=== PATIENT | female | born 1990 | race Caucasian/White ===

== ENCOUNTER → 2017-07-05 16:43 | Outpatient (CLI) | payer OTHER, SELFPAY ==
[2017-07-05 19:33] LABS: Chlamydia Trachomatis by PCR Negative (Negative); Neisserai gonorrhoeae by PCR Negative (Negative); Probe Check PASS; Sample Adequacy Control PASS; Specimen Processing Control PASS
== END ==
PROVIDERS: Visit Provider Obstetrics & Gynecology
DX: Z34.81 Encounter for supervision of other normal pregnancy, first trimester (principal)
CPT/HCPCS: 87491; 87591

== ENCOUNTER → 2017-08-09 16:08 | Outpatient (CLI) | payer OTHER, SELFPAY ==
[2017-08-09 17:44] LABS: Absolute Lymphocyte Count 2.09 X10^3/ul (0.83-4.51); Absolute Neutrophil Count 8.4 X10^3/uL (2.0-7.7); Basophil# 0.02 X10^3/uL; Basophil% 0.2 % (0-1); Eosinophil# 0.09 X10^3/uL; Eosinophils% 0.8 % (0-5); Hematocrit 38.4 % (37-47); Hemoglobin 13.1 g/dl (12.0-15.0); Lymphocyte # 2.09 X10^3/ul (4.0); Lymphocyte % 18.2 % (19-41); Mean Corp Hgb Conc 34.1 g/gl (32-36); Mean Corpuscular Hgb 30.8 pg (27.0-32.0); Mean Corpuscular Volume 90.1 fL (81-99); Mean Platelet Vol. 11.3 fl (6.2-12.0); Monocyte# 0.86 X10^3/uL; Monocyte% 7.5 % (0-10); Neutrophil # 8.42 X10^3/uL (2.7-7.7); Platelet Count 273 K/mm3 (150-450); RBC Distribution Width CV 12.7 % (11.6-14.6); RBC Distribution Width SD 41.6 fl (35.1-43.9); Red Blood Count 4.26 M/mm3 (4.2-5.4); White Blood Count 11.5 K/mm3 (4.4-11.0)
[2017-08-09 17:45] LABS: POSITIVE COUNT NO; POSITIVE DIFFERENTIAL NO; POSITIVE MORPHOLOGY NO
[2017-08-09 17:48] LABS: Color, Urine Yellow (Yellow); Glucose, Dipstick Normal (Normal); Ketone-Dipstick Negative (Negative); Leukocyte Esterase-Dipstick 25 /ul (Negative); Nitrite-Dipstick Negative (Negative); Occult Blood-Urine 10 /ul (Negative); Protein-Dipstick Negative (Negative); Specific Gravity, Urine 1.025 (1.002-1.030); Urine Bilirubin Dipstick Negative (Negative); Urine Clarity Clear (Clear); Urine Urobilinogen Normal (Normal)
[2017-08-09 18:02] LABS: COTININE Drug Screen Negative (<200 ng/mL)
[2017-08-09 18:12] LABS: Thyroid Stim Hormone (TSH) 1.78 uIU/mL (0.358-3.74)
[2017-08-09 18:17] LABS: Amphetamine Urine VISTA NEGATIVE (<1000 ng/mL); Barbiturate Urine VISTA NEGATIVE (< 200 ng/mL); Benzodiazepine Urine VISTA NEGATIVE (< 200 ng/mL); Cocaine Urine VISTA NEGATIVE (< 300 ng/mL); Ecstacy Urine VISTA NEGATIVE (< 500 ng/mL); Methadone Urine VISTA NEGATIVE (< 300 ng/mL); PCP Urine VISTA NEGATIVE (< 25 ng/mL); THC Urine VISTA NEGATIVE (< 50 ng/mL); Vista UDS pH Range 7
[2017-08-10 09:36] LABS: HIV - WCH Non-Reactive (Nonreactive); Rubella IgG 21.3 IU/mL
[2017-08-11 12:55] LABS: HEPATITIS B SURFACE AG Negative (Negative); Hep C Antibodies <0.1 s/co ratio (0.0-0.9)
[2017-08-12 01:09] LABS: Prenatal RPR NONREACTIVE (NONREACTIVE)
== END ==
PROVIDERS: Visit Provider Obstetrics & Gynecology
DX: Z34.81 Encounter for supervision of other normal pregnancy, first trimester (principal)
CPT/HCPCS: 36415; 80307; 81002; 84443; 85025; 86703; 86762; 86803; 87340

== ENCOUNTER → 2017-10-13 11:53 | Outpatient (CLI) | payer OTHER, SELFPAY | PROVIDERS: Visit Provider Obstetrics & Gynecology | DX: R30.0 Dysuria (principal); R31.9 Hematuria, unspecified; R39.15 Urgency of urination | CPT/HCPCS: 87086; 87088 ==

== ENCOUNTER → 2017-11-29 13:54 | Outpatient (CLI) | payer OTHER, SELFPAY ==
[2017-11-29 15:52] LABS: Hematocrit 34.7 % (37-47); Hemoglobin 11.6 g/dl (12.0-15.0); Mean Corp Hgb Conc 33.4 g/gl (32-36); Mean Corpuscular Hgb 31.4 pg (27.0-32.0); Mean Corpuscular Volume 93.8 fL (81-99); Mean Platelet Vol. 12.1 fl (6.2-12.0); Platelet Count 208 K/mm3 (150-450); RBC Distribution Width CV 12.9 % (11.6-14.6); RBC Distribution Width SD 43.3 fl (35.1-43.9); Scan Indicated on CBC? Y/N NO; White Blood Count 13.5 K/mm3 (4.4-11.0)
[2017-11-29 15:57] LABS: Glucose Challenge Gest 1H 50g 114 mg/dL (70-140)
== END ==
PROVIDERS: Visit Provider Obstetrics & Gynecology
DX: Z34.83 Encounter for supervision of other normal pregnancy, third trimester (principal)
CPT/HCPCS: 36415; 82950; 85027

== ENCOUNTER → 2018-01-24 13:16 | Outpatient (CLI) | payer OTHER, SELFPAY ==
[2018-01-24 16:11] LABS: Group B Strep DNA By PCR POSITIVE (Negative); Probe Check PASS
== END ==
PROVIDERS: Visit Provider Obstetrics & Gynecology
DX: Z36.85 Encounter for antenatal screening for Streptococcus B (principal)
CPT/HCPCS: 87653

== ENCOUNTER 2018-01-26 23:15 | Outpatient (CLI) | payer OTHER, SELFPAY ==
[2018-01-26 23:57] VITALS: BMI 26.0
[2018-01-27 01:00] VITALS: RESP 18
--- NOTE | 2018-01-27 01:42 | OB.TRI.NOTE ---
- Problem List (1) 36 weeks gestation of Status: Acute (2) False labor at or after 37 completed weeks of gestation Status: Acute History of Present Illness Was patient seen by the physician?: No Reason For Visit: R/O LABOR Date of Service: 01/27/18 Final ROSEMARIE: 02/18/18 Final ROSEMARIE Source: US <20 weeks Gestational age: 36 Weeks and 6 Days History of Present Illness: 27yo G1 @ 36 6/7wga with c/o contractions Allergies gluten Adverse Reaction (Verified 01/26/18 23:57) Vomiting Physical Exam Vitals: Vital Signs Resp 18 01/27/18 01:00 NST - FHR Rate Baby A Baseline: 120 Variability:: Moderate Accelerations:: 15 x 15 Decelerations:: None NST Reactive:: Yes FHR Category:: Category I Uterine Activity:: 4/10 min Impression/Plan 27yo G1 @ 36 6/7wga with false labor, Cat I FHR -SVE 1-2/75/-2 per ANA Urrutia unchanged from recent office exam -d/c home
== END 2018-01-27 01:00 | disposition home or self-care (01) ==
LOC: WPOUT 23:34 → WP 23:35
PROVIDERS: Family Provider Obstetrics & Gynecology; PCP Obstetrics & Gynecology; Visit Provider Obstetrics & Gynecology
DX: O47.03 False labor before 37 completed weeks of gestation, third trimester (principal); Z3A.36 36 weeks gestation of pregnancy
CPT/HCPCS: 59025; 59050; 99218; G0378

== ENCOUNTER 2018-01-31 01:35 | Inpatient (IN) | payer OTHER, SELFPAY ==
[2018-01-31] MEDS: Lactated Ringers 1,000 ML 50 ML IV (01:45)
[2018-01-31 01:54] VITALS: BMI 26.7
[2018-01-31 02:09] LABS: Hematocrit 34.8 % (37-47); Hemoglobin 11.5 g/dl (12.0-15.0); Mean Corpuscular Hgb 30.3 pg (27.0-32.0); Mean Corpuscular Volume 91.6 fL (81-99); Mean Platelet Vol. 13.6 fl (6.2-12.0); Platelet Count 163 K/mm3 (150-450); RBC Distribution Width SD 43.5 fl (35.1-43.9); White Blood Count 14.3 K/mm3 (4.4-11.0)
[2018-01-31 02:12] LABS: Scan Indicated on CBC? Y/N NO
[2018-01-31] MEDS: Oxytocin 30 units/NS 500 ml 30 UNITS/500 ML IV.SOLN 334 UNITS IV (05:29)
--- NOTE | 2018-01-31 05:40 | PCM.OB.VAG ---
Vaginal Delivery Maternal Presentation: Active Labor Amniotic Membrane Rupture Type: Spontaneous Amniotic Fluid Description: Clear Final ROSEMARIE: 02/18/18 Final ROSEMARIE Source: US <20 weeks Gestational age: 37 Weeks and 3 Days Date of Procedure: 01/31/18 Pre-Operative Diagnosis: IUP Post-Operative Diagnosis: IUP Surgery/ Procedure Performed: Spontaneous Vaginal Delivery Type of Anesthesia: None Description of Procedure: Spontaneous vaginal delivery of a viable male with Apgars of 8/9 from an occiput anterior presentation with clear amniotic fluid and normal three-vessel placenta. No episiotomy or laceration. Sponge counts okay. Delivery physician: Ashwin Ramos MD. Presentation: Vertex Placental Delivery Description: Spontaneous Placenta Disposition: [facility] Cord Vessel Description: 3 Vessels Cord Gases drawn per routine: ABG Cord Entanglement: Around neck x 2, loose Estimated Blood Loss: 250 cc Infant A gender: Male (1 minute): 8 (5 minute): 9 Episiotomy Description: None Laceration: None Medications given after delivery: IV Pitocin Complications: None
--- NOTE | 2018-01-31 05:43 | PCM.DCVAG ---
Discharge Diet: No Restrictions Discharge Activity: May Shower, May Take a Tub Bath May resume sexual activity in: 4-6 weeks Additional Activity Instructions:: Nothing in the vagina for 4-6 weeks. You may return to work/school in 6 weeks. Call your doctor if you observe: Fever of 101 or Higher, Inability to urinate, Inability to have a bowel movement, Using more than one pad per hour Additional Instructions: If you experience any of the following, contact your healthcare provider. Bleeding that soaks a pad every hour for 2 hours Unrelieved incision or abdominal pain Swelling, redness, discharge or bleeding from your incision or episiotomy site Your incision begins to separate Problems urinating (including inability to urinate or burning while urinating). Visual changes Severe headache Flu-like symptoms Pain or redness in one of both of your breasts Pain, warmth, tenderness or swelling in your legs, especially the calf area Frequent nausea and vomiting Symptoms of depression or anxiety If you experience any of the following, call 911 or go to the nearest Emergency Room. Chest pain Problems breathing Seizure activity Partial or complete paralysis of a body part, slurred speech, weakness or drooping of the face, or a sudden inability to walk or hold your balance Allergies/Adverse Reactions: Allergies gluten Adverse Reaction (Verified 01/31/18 01:57) Vomiting Medications to take at Discharge Ferrous Sulfate [Iron] 325 mg PO DAILY 01/26/18 Vits [Prenatabs FA] 1 tablet PO DAILY 01/26/18 Please Follow Up With: Michelle Alva MD - [phone] When: Call to make an appointment with your doctor in 6 weeks. Primary Care Physician: Care Physician,No Primary [Primary Care Provider] - Test Results: Test results from this visit will be discussed in further detail at your follow-up appointment, if applicable.
[2018-01-31] MEDS: Oxytocin 30 units/NS 500 ml 30 UNITS/500 ML IV.SOLN 167 UNITS IV (06:00)
[2018-01-31 12:00] VITALS: BP 123/66; PULSE 72; RESP 16; TEMP 36.2
[2018-01-31 15:57] VITALS: BP 118/65; PULSE 73; RESP 16; TEMP 36.6
[2018-01-31 20:15] VITALS: BP 123/64; PULSE 68; RESP 16; TEMP 36.7; O2SAT 98
[2018-02-01 00:11] VITALS: BP 120/66; PULSE 66; RESP 16; TEMP 36.7; O2SAT 97
[2018-02-01] MEDS: Acetaminophen 500 MG Tablet 1000 MG PO ×2 (04:11→18:36)
[2018-02-01 04:15] VITALS: BP 129/72; PULSE 61; RESP 16; TEMP 36.6; O2SAT 94
--- NOTE | 2018-02-01 07:44 | PCM.PN.OB ---
Subjective: No issues overnight. Lochia is lightening. Denies pain. Has mild cramping with nursing. is spoon feeding prior to feeds. Bryan has no complaints. Objective: AVSS - Physical Exam General: Alert, Oriented x3, Cooperative, No apparent distress HEENT: Atraumatic, Normocephalic Lungs: Normal air movement Cardiovascular: Regular rate, Regular Rhythm Abdomen: Soft, Non Tender, Non-Distended, - - Fundus firm and nontender, lochia moderate Extremities: No edema, No Calf Tenderness Neurological: Neuro grossly intact Psych/Mental Status: Normal Affect, Appropriate, Alert and oriented to time, place, person, mood and affect Vital Signs Temp Pulse Resp BP Pulse Ox 97.9 F 61 16 129/72 H 94 02/01/18 04:15 02/01/18 04:15 02/01/18 04:15 02/01/18 04:15 02/01/18 04:15 Oxygen Delivery Method Room Air Weight: 68.5 kg Body Mass Index (BMI) 26.7 Intake and Output for Last 24 Hours 01/30/18 01/31/18 02/01/18 23:59 23:59 23:59 Intake Total 1545 / 1545 Output Total 700 / 700 Balance 845 / 845 Medical Necessity - Tobacco Use Smoking Status: Never smoker Assessment/Plan All Active Problems 36 weeks gestation of (Acute) False labor at or after 37 completed weeks of gestation (Acute) 27yo PPD#1 s/p doing well. - -RPR nr, Hep C Ab neg, HBsAg neg, HIV neg, Rubella immune, O positive -Routine care
[2018-02-01 08:00] VITALS: BP 120/76; PULSE 64; RESP 18; TEMP 36.7
[2018-02-01 13:57] VITALS: BP 136/80; PULSE 58; RESP 14; TEMP 36.4
[2018-02-01] MEDS: Ondansetron ODT 4 MG Tablet PO (17:40)
[2018-02-01 20:30] VITALS: BP 124/66; PULSE 68; RESP 18; TEMP 36.6; O2SAT 97
[2018-02-02 02:45] VITALS: BP 126/58; PULSE 88; RESP 18; TEMP 36.6
[2018-02-02] MEDS: Ibuprofen 600 MG Tablet PO (02:59)
--- NOTE | 2018-02-02 08:40 | PCM.PN.OB ---
Subjective: Reports nausea with vomiting yesterday afternoon now resolved however noted right upper abdominal and right back pain since then. She previously pulled out a rib related to sports injury in the past and this resembles that. Sickness set in about 1-2 hours after eating lunch yesterday. No nausea today, denies fever, chills, headache, vision changes, other abdominal pain, shortness of breath. She otherwise feels well. Objective: AVSS - Physical Exam General: Alert, Oriented x3, Cooperative, No apparent distress HEENT: Atraumatic, Normocephalic Lungs: Clear to auscultation, Normal air movement Cardiovascular: Regular rate, Regular Rhythm, Normal S1, Normal S2 Abdomen: Soft, Non Tender, Non-Distended, No Hepato-splenomegaly, - - No CVA tenderness, no rib or costochondral tenderness Extremities: No edema, No Calf Tenderness Neurological: Deep Tendon Reflexes 2+/4 and Symmetrical, Neuro grossly intact Psych/Mental Status: Normal Affect, Appropriate, Alert and oriented to time, place, person, mood and affect Vital Signs Temp Pulse Resp BP Pulse Ox 97.8 F 88 18 126/58 H 97 02/02/18 02:45 02/02/18 02:45 02/02/18 02:45 02/02/18 02:45 02/01/18 20:30 Oxygen Delivery Method Room Air Weight: 68.5 kg Body Mass Index (BMI) 26.7 Intake and Output for Last 24 Hours 01/31/18 02/01/18 02/02/18 23:59 23:59 23:59 Intake Total 1545 / 1545 Output Total 700 / 700 Balance 845 / 845 Medical Necessity - Tobacco Use Smoking Status: Never smoker Assessment/Plan All Active Problems 36 weeks gestation of (Acute) False labor at or after 37 completed weeks of gestation (Acute) 27yo PPD#2 s/p doing well. - -RPR nr, Hep C Ab neg, HBsAg neg, HIV neg, Rubella immune, O positive -Routine care -Likely recurrence of prior ribcage injury from wretching, pt to continue monitoring -dc home
[2018-02-02 09:45] VITALS: BP 109/68; PULSE 67; RESP 16; TEMP 36.6; O2SAT 98
== END 2018-02-02 12:05 | disposition home or self-care (01) | DRG 774 ==
PROVIDERS: Admitting Provider Obstetrics & Gynecology; Visit Provider Obstetrics & Gynecology
DX: O69.81X0 Labor and delivery complicated by cord around neck, without compression, not applicable or unspecified (principal); O90.89 Other complications of the puerperium, not elsewhere classified; Z3A.37 37 weeks gestation of pregnancy; Z37.0 Single live birth; M54.9 Dorsalgia, unspecified; R10.11 Right upper quadrant pain
CPT/HCPCS: 59050; 85027; 86850; 86900; 99218; J7120; G0378

== ENCOUNTER 2018-02-07 09:10 | Outpatient (CLI) | payer OTHER, SELFPAY | END 2018-02-07 10:10 | disposition home or self-care (01) | LOC: WPOUT 09:14 → WP 09:15 | PROVIDERS: Visit Provider Obstetrics & Gynecology | DX: Z39.1 Encounter for care and examination of lactating mother (principal) | CPT/HCPCS: 96152 ==

== ENCOUNTER → 2019-04-26 14:11 | Outpatient (CLI) | payer OTHER, SELFPAY ==
[2019-04-26 13:49] VITALS: BMI 23.3
[2019-04-26 15:08] LABS: Absolute Lymphocyte Count 2.41 X10^3/uL (0.83-4.51); Absolute Neutrophil Count 7.4 X10^3/uL (2.0-7.7); Basophil# 0.04 X10^3/uL; Basophil% 0.4 % (0-1); Eosinophil# 0.07 X10^3/uL; Eosinophils% 0.6 % (0-5); Hematocrit 41.8 % (37-47); Hemoglobin 13.5 g/dL (12.0-15.0); Lymphocyte # 2.41 X10^3/ul (4.0); Lymphocyte % 21.8 % (19-41); Mean Corp Hgb Conc 32.3 g/dL (32-36); Mean Corpuscular Hgb 29.8 pg (27.0-32.0); Mean Corpuscular Volume 92.3 fL (81-99); Mean Platelet Vol. 11.3 fl (6.2-12.0); NRBC Flagged by Analyzer 0 % (0-5); Neutrophil % 66.9 % (47-70); Platelet Count 236 K/mm3 (150-450); RBC Distribution Width CV 12.6 % (11.6-14.6); RBC Distribution Width SD 42.6 fl (35.1-43.9); Red Blood Count 4.53 M/mm3 (4.2-5.4); White Blood Count 11.1 K/mm3 (4.4-11.0)
[2019-04-26 15:31] LABS: T4 Free Direct 0.89 ng/dL (0.76-1.46)
== END ==
PROVIDERS: Family Provider Family Medicine; PCP Family Medicine; Referring Provider Obstetrics & Gynecology; Visit Provider Obstetrics & Gynecology
DX: N92.1 Excessive and frequent menstruation with irregular cycle (principal); Z97.5 Presence of (intrauterine) contraceptive device
CPT/HCPCS: 36415; 84439; 84443; 85025

== ENCOUNTER → 2019-04-27 14:05 | Outpatient (CLI) | payer OTHER, SELFPAY ==
[2019-04-26 13:49] VITALS: BMI 23.3
--- NOTE | 2019-04-27 14:07 | US_ITS ---
STUDY: ULTRASOUND OF THE FEMALE PELVIS - COMPLETE REASON FOR EXAM: Female, 28 years old. IUD placement. Heavy bleeding. LMP: April 21, 2019. TECHNIQUE: Transabdominal and Transvaginal TECHNICAL QUALITY: Adequate. COMPARISON: Pelvic ultrasound, May 31, 2017. FINDINGS: The uterus is anteverted and is in a midline position. The uterus measures 8.0 x 3.9 x 2.9 cm. The endometrium measures 1.7 mm in thickness, and is hyperechoic. There is no demonstrated endometrial mass. There is no demonstrated myometrial mass. There is an IUD within the cervical canal. Cervix is otherwise unremarkable. The right ovary is visualized. The right ovary measures 1.8 x 2.4 x 1.4 cm. Multiple follicles in the right ovary. There is 1.3 x 1.3 x 0.6 cm dominant follicle. There is no visualized right adnexal mass or complex lesion. There is normal arterial and normal venous vascularity. The left ovary is visualized. The left ovary measures 2.2 x 1.5 x 1.2 cm. There are multiple follicles within the left ovary. There is a 1.2 x 1.3 x 1.0 cm dominant follicle. There is no visualized left adnexal mass or complex lesion. There is normal arterial and normal venous vascularity. There is no fluid in the cul-de-sac. The pre void volume of the bladder was 920 ml. Polycystic ovary disease: No. US/Transvaginal Non- IMPRESSION: 1. IUD in the cervical canal. 2. Normal bilateral ovaries. Electronically Signed: Aj Paz DO at 22:49 EST Tel [phone], Service support ,
--- NOTE | 2019-04-27 14:07 | US_ITS ---
STUDY: ULTRASOUND OF THE FEMALE PELVIS - COMPLETE REASON FOR EXAM: Female, 28 years old. IUD placement. Heavy bleeding. LMP: April 21, 2019. TECHNIQUE: Transabdominal and Transvaginal TECHNICAL QUALITY: Adequate. COMPARISON: Pelvic ultrasound, May 31, 2017. FINDINGS: The uterus is anteverted and is in a midline position. The uterus measures 8.0 x 3.9 x 2.9 cm. The endometrium measures 1.7 mm in thickness, and is hyperechoic. There is no demonstrated endometrial mass. There is no demonstrated myometrial mass. There is an IUD within the cervical canal. Cervix is otherwise unremarkable. The right ovary is visualized. The right ovary measures 1.8 x 2.4 x 1.4 cm. Multiple follicles in the right ovary. There is 1.3 x 1.3 x 0.6 cm dominant follicle. There is no visualized right adnexal mass or complex lesion. There is normal arterial and normal venous vascularity. The left ovary is visualized. The left ovary measures 2.2 x 1.5 x 1.2 cm. There are multiple follicles within the left ovary. There is a 1.2 x 1.3 x 1.0 cm dominant follicle. There is no visualized left adnexal mass or complex lesion. There is normal arterial and normal venous vascularity. There is no fluid in the cul-de-sac. The pre void volume of the bladder was 920 ml. Polycystic ovary disease: No. US/Pelvic (Non ) IMPRESSION: 1. IUD in the cervical canal. 2. Normal bilateral ovaries. Electronically Signed: Aj Paz DO at 22:49 EST Tel [phone], Service support ,
== END ==
PROVIDERS: Family Provider Family Medicine; PCP Family Medicine; Referring Provider Obstetrics & Gynecology; Visit Provider Obstetrics & Gynecology
DX: N92.1 Excessive and frequent menstruation with irregular cycle (principal); Z97.5 Presence of (intrauterine) contraceptive device
CPT/HCPCS: 76830; 76856

== ENCOUNTER 2019-08-07 07:23 | Day surgery (SDC) | payer OTHER, SELFPAY ==
[2019-07-03 13:06] VITALS: BMI 23.9
[2019-07-31 13:39] VITALS: BMI 23.9
--- NOTE | 2019-08-04 03:52 | HP.PCM_ITS ---
- Problem List (1) Abnormal uterine bleeding Status: Acute Comment: persistent bleeding despite changing hormones, nl US, recommend d and c hysteroscopy to evaluate lining History and Physical Date of Admission: 08/07/19 Intake Vital Signs 07/31/19 Height 5 ft 4 in 07/31/19 Weight: 137 lb 07/31/19 BMI 23.5 07/31/19 BP 94/72 Intake Visit Reasons: pre op Chief Complaint: pre op D&C Chief Accountant Required: No Is patient in pain?: No Allergies gluten Adverse Reaction (Verified 07/31/19 13:38) Vomiting Medications sertraline 100 mg tablet 100 mg PO DAILY 06/01/18 [History Confirmed 07/31/19] norethindrone 1 mg-ethinyl estradiol 20 mcg (24)-iron 75 mg (4) tablet 1 tab PO QDAY #28 tab 04/26/19 [Rx Confirmed 07/31/19] metoprolol succinate 25 mg tablet,extended release 24 hr 12.5 mg PO DAILY 07/03/19 [History Confirmed 07/31/19] Is last menstrual period known: No Post menopausal: No Patient : No : [facility] Medical History Anxiety (Acute) Kidney stones (Acute) Social History (Updated 07/31/19 @ 13:[address] Amairani Deutsch MD) adopted: No household members: family housing: house number of children: 1 current occupational status: employed current occupation: Self employed pets and animals: Yes history of recent travel: No Smoking Status: Never smoker second hand exposure: No alcohol intake: current alcohol intake frequency: holidays/special occasions only substance use type: does not use diet: gluten free what type of physical activity do you participate in: other details: Crossfit seatbelt use: always do you feel safe at home: Yes additional social history: [place] MARQUEZ pre op : Details: BETTE LUIS is a 29 year old who presents for AUB planning a d and c hyysteroscopy. Female Reproductive History Questions: Metorrhagia: Yes, Sexually active: Yes Pregancy History 1 Elective abortions Hx Para 1 Spontaneous abortions Hx # Term Pregnancies 1 Ectopic pregnancies Hx # Pregnancies Multiple births # of living children 1 Past Pregnancies Del. Date Name GA/Weeks Outcome Route Bth Weight Gen Labor Lgth Anesthesia Del Locatn Provider FOB 01/31/18 Pelon 37 live - full term 5lbs 12oz Male 9 hours other [facility] Dr. Rachel Martell Delivery Date: 01/31/18 On 03/20/18 @ 10:56 Lulu Sánchez None ROS Const Constitutional: Denies fatigue, fever(s), headache(s), increased appetite, poor appetite, weight gain or weight loss ENT ENT: Denies dry mouth Cardio Card: Denies chest pain Resp Resp: Denies cough or dyspnea GI GI: Reports as per HPI; denies abdominal pain, constipation, nausea or vomiting : Reports as per HPI; denies difficulty urinating, painful urination, blood in urine, nipple discharge, pelvic pain, urinary frequency, urinary incontinence, urinary hesitancy, urinary urgency, vaginal discharge, vaginal dryness, vaginal odor, vaginal itching or other Skin Skin/Breast: Denies nipple discharge Exam Const General: cooperative, healthy appearing, comfortable, no acute distress, well developed Nutritional Appearance: average body habitus Orientation: alert [facility] Head: normal to inspection, normocephalic Ears: hearing grossly normal bilaterally, external ears normal Nose: external nose normal, nares normal Face and sinus: normal facial exam Neck Neck: normal visual inspection, no lymphadenopathy, trachea midline Thyroid: thyroid normal Resp Effort & Inspection: normal respiratory effort GI Inspection: normal to inspection, non-distended Palpation: soft, no hepatosplenomegaly Musc Other: gross motor intact no deficits, full bilateral strength Skin General: no rashes or lesions noted Neuro Motor: muscle tone normal throughout Assessment & Plan Problems 1. Abnormal uterine bleeding N93.9 persistent bleeding despite changing hormones, nl US, recommend d and c hysteroscopy to evaluate lining Plan After discussing the patient's diagnosis and treatment plan options, patient wishes to proceed with surgical management. I have discussed with the patient the risks, benefits, and alternatives of the procedure which include but are not limited to risks of anesthesia, bleeding, infection, possible damage to bowel, bladder, or surrounding vasculature which could lead to additional surgery to evaluate any complications. Patient agrees to procedure and wishes to proceed. UPDATE- I have seen the patient and performed any clinically relevant updates to the history and physical exam. Amairani Deutsch MD Coding Level of Care Code No Charge Diagnoses Abnormal uterine bleeding N93.9
[2019-08-07 08:00] VITALS: BP 110/60; PULSE 68; RESP 16; TEMP 36.4; O2SAT 100; BMI 24.3
[2019-08-07] MEDS: Lactated Ringers 1,000 ML 100 ML IV (08:20)
[2019-08-07 08:26] LABS: Hematocrit 39.5 % (37-47); Mean Corp Hgb Conc 32.9 g/dL (32-36); Mean Corpuscular Hgb 30.1 pg (27.0-32.0); Mean Corpuscular Volume 91.4 fL (81-99); Mean Platelet Vol. 10.9 fl (6.2-12.0); Platelet Count 226 K/mm3 (150-450); RBC Distribution Width CV 12.3 % (11.6-14.6); RBC Distribution Width SD 40.8 fl (35.1-43.9); Red Blood Count 4.32 M/mm3 (4.2-5.4)
[2019-08-07 08:28] LABS: Internal QC Validated? YES +Cl - CLEAR BKGD; Pregnancy, Urine Negative Negative
--- NOTE | 2019-08-07 08:48 | PCM.OPRPT ---
Problem List (1) Abnormal uterine bleeding Status: Acute Comment: persistent bleeding despite changing hormones, nl US, recommend d and c hysteroscopy to evaluate lining Report of Operation Date of Procedure: 08/07/19 Pre-Operative Diagnosis: abnormal uterine bleeding Post-Operative Diagnosis: same Surgery/Procedure Performed:: d and c hysteroscopy Description of Surgical Findings:: thickened lining Type of Anesthesia:: Local MAC Special Medications: none Specimen's removed: emc Drains: none Estimated Blood Loss (mL): 10 Fluids Replaced: crystalloid Description of Procedure: Patient was prepped and draped in a normal sterile fashion under MAC anesthesia. A weighted speculum was placed in the vagina and the anterior lip of the cervix was grasped with a single-tooth tenaculum. Cervix was progressively dilated to allow passage of a 5 mm hysteroscope. The lining was fully visualized and noted to have a thickened appearance but no gross abnormalities. Uterine sounded to 8 cm. Curettage was performed and a significant amount of tissue was removed, sent to pathology. All instruments were removed from the vagina and excellent hemostasis was noted. Patient was awoken and taken to recovery in stable condition. Grafts/Implants Used: none - Complications none - Admit VTE Documentation VTE Present on Admission: No VTE Mechan Device Prophylaxis: SCD's Multi Select Codes - Urinary/Genital Urinary/Genital CPT Codes: 79165 Non-ob D&C, 77840 Hysteroscopy, diagnostic
--- NOTE | 2019-08-07 08:50 | PCM.DC.D&C ---
Discharge Diet: No Restrictions Discharge Activity: Return to Normal Activity, May Shower, May Take a Tub Bath Allergies/Adverse Reactions: Allergies gluten Adverse Reaction (Verified 08/07/19 07:59) Vomiting Medications to take at Discharge sertraline 100 mg tablet 100 mg PO DAILY 06/01/18 norethindrone 1 mg-ethinyl estradiol 20 mcg (24)-iron 75 mg (4) tablet 1 tab PO QDAY #28 tab 04/26/19 metoprolol succinate 25 mg tablet,extended release 24 hr 12.5 mg PO DAILY 07/03/19 RX: Naproxen [Naprosyn] 250 - 500 mg PO Q8H PRN PRN #30 tab 08/07/19 The following prescriptions were given: RX: Naproxen [Naprosyn] 250 - 500 mg PO Q8H PRN PRN #30 tab PRN Reason: MILD PAIN Transmission Status: Received by [facility] [place] Orders to be completed after discharge: Type & Screen Time Frame: 08/07/19, Facility: [facility], Location: Laboratory Primary Care Physician: Raul Preston MD [Primary Care Provider] - Test Results: Test results from this visit will be discussed in further detail at your follow-up appointment, if applicable. Please Follow Up With: Amairani Deutsch MD - [phone]
--- NOTE | 2019-08-07 09:00 | EMB_PTH ---
PATIENT: BETTE LUIS [place] [facility] [place][id number] AGE/SX: 29/F ROOM: RE08/07/[address]: Dr. Amairani Deutsch MD : [id number] BED: DIS: 08/07/2019 SPEC #: [id number] RECD: 08/07/19 09:48 STATUS: FAISAL GLENDY #: [id number] JENNIFER: 08/07/19 09:[address]: Amairani Deutsch DEPT: SURGICAL PATHOLOGY RECD BY: Randy Castro ENTERED: 08/07/19 10:31 SP TYPE: ENDOM BX/C OTHR DR: Dr. Raul Preston MD Tissues: Endometrium, NOS Procedures: Surgery Specimen Level IV HEADER OPERATION: Hysteroscopy, D & C PRE-OP DIAGNOSIS: Abnormal uterine bleeding TISSUE SUBMITTED: Endometrial curettings MICROSCOPIC DIAGNOSIS Endometrial curettings: Proliferative endometrium. Fragments of benign ecto- and endocervical epithelium. SJ:murali 08/08/19 MICROSCOPIC DESCRIPTION Slides are reviewed. GROSS DESCRIPTION Received in fixative is one container labeled with the patient's name and designated endometrial curettings. The specimen consists of multiple fragments of pink hemorrhagic soft tissue that in aggregate measure 5 x 3 x 0.3 cm. The entire specimen is submitted in two cassettes. / PENG:murali 08/07/19 TC:4 CPT: 93582
[2019-08-07 09:13] VITALS: BP 110/60; BP 92/43; PULSE 67; RESP 16; TEMP 36.2; O2SAT 97
[2019-08-07 09:20] VITALS: BP 110/60; BP 85/46; PULSE 58; RESP 16; O2SAT 92
[2019-08-07 09:31] VITALS: BP 110/60; BP 98/48; PULSE 63; PULSE 65; RESP 14; TEMP 36.4; O2SAT 97; O2SAT 98
[2019-08-07 10:05] VITALS: BP 110/60
== END 2019-08-07 10:10 | disposition home or self-care (01) ==
LOC: SDC 07:24 → AC 07:27
PROVIDERS: PCP Family Medicine; Referring Provider Obstetrics & Gynecology; Visit Provider Obstetrics & Gynecology
PROC: 0UDB8ZZ Extraction of Endometrium, Via Natural or Artificial Opening Endoscopic (ICD-10-PCS; CPT 58558; principal; 2019-08-07 08:50)
DX: N93.9 Abnormal uterine and vaginal bleeding, unspecified (principal); F41.9 Anxiety disorder, unspecified; F32.9 Major depressive disorder, single episode, unspecified; Z87.442 Personal history of urinary calculi; Z79.899 Other long term (current) drug therapy
CPT/HCPCS: 00952; 58558; 81025; 85027; 86850; 86900; 86901; 88305; J7120

== ENCOUNTER → 2020-02-15 | Outpatient (CLI) | payer OTHER, SELFPAY | END | disposition home or self-care (01) | LOC: MTDU 10:32 | PROVIDERS: PCP Family Medicine; Referring Provider Family Medicine; Visit Provider Family Medicine | DX: Z20.828 Contact with and (suspected) exposure to other viral communicable diseases (principal) | CPT/HCPCS: 87635; C9803; U0003 ==

== ENCOUNTER → 2020-08-06 | Outpatient (CLI) | payer OTHER, SELFPAY ==
[2020-08-06 08:56] VITALS: BMI 25.1
[2020-08-09 12:53] LABS: HPV Reflexed? NOT INDICATED
== END | disposition home or self-care (01) ==
LOC: LABSPEC 13:04
PROVIDERS: PCP Family Medicine; Referring Provider Nurse Practitioner Women's Health; Visit Provider Nurse Practitioner Women's Health
DX: Z12.4 Encounter for screening for malignant neoplasm of cervix (principal)
CPT/HCPCS: 88175; G0145

== ENCOUNTER 2021-01-26 15:02 | Emergency (ER) | payer OTHER, SELFPAY ==
[2021-01-26 15:03] VITALS: BP 120/75; PULSE 68; RESP 16; TEMP 35.5; O2SAT 100; BMI 25.0
[2021-01-26 15:57] LABS: Absolute Lymphocyte Count 1.61 X10^3/uL (0.83-4.51); Absolute Neutrophil Count 7.9 X10^3/uL (2.0-7.7); Basophil# 0.03 X10^3/uL; Basophil% 0.3 % (0-1); Eosinophil# 0.09 X10^3/uL; Eosinophils% 0.9 % (0-5); Hematocrit 39.1 % (37-47); Hemoglobin 12.6 g/dL (12.0-15.0); Lymphocyte # 1.61 X10^3/ul (0.83-4.51); Lymphocyte % 15.3 % (19-41); Mean Corp Hgb Conc 32.2 g/dL (32-36); Mean Corpuscular Hgb 29.8 pg (27.0-32.0); Mean Corpuscular Volume 92.4 fL (81-99); Mean Platelet Vol. 10.8 fl (6.2-12.0); Monocyte# 0.84 X10^3/uL; NRBC Flagged by Analyzer 0 % (0-5); Neutrophil # 7.92 X10^3/uL (2.7-7.7); Neutrophil % 75.2 % (47-70); Platelet Count 256 K/mm3 (150-450); RBC Distribution Width CV 12.7 % (11.6-14.6); RBC Distribution Width SD 43.4 fl (35.1-43.9); Red Blood Count 4.23 M/mm3 (4.2-5.4); White Blood Count 10.5 K/mm3 (4.4-11.0)
[2021-01-26 16:07] LABS: Internal QC Validated? YES +Cl - CLEAR BKGD; Pregnancy, Serum, hCG Quali. NEGATIVE Negative
[2021-01-26 16:11] LABS: Anion Gap 4 (5-15); BUN 15 mg/dL (7-18); BUN/Creat Ratio 17.9 RATIO (10-20); Calcium,Total 9.1 mg/dL (8.5-10.1); Chloride 109 mmol/L (98-107); Creatinine, Serum 0.84 mg/dL (0.55-1.02); EST Glomerular Filtration Rate 86 mL/min (>60); Est Glom Filt Rate - Afr Amer 104 mL/min (>60); Glucose 108 mg/dL (74-106); Sodium Level 140 mmol/L (136-145)
[2021-01-26 16:23] LABS: Bacteria 0 SEEN /hpf (None Seen); Mucous, Urine 0 SEEN /hpf (<or=2+); White Blood Cells 0 SEEN /hpf (0-5)
[2021-01-26 16:31] LABS: Color, Urine Yellow (Yellow); Glucose, Dipstick Normal (Normal); Ketone-Dipstick Negative (Negative); Leukocyte Esterase-Dipstick 25 /ul (Negative); Nitrite-Dipstick Negative (Negative); Occult Blood-Urine 150 /ul (Negative); Protein-Dipstick 30 mg/dl (Negative); Specific Gravity, Urine 1.015 (1.002-1.030); Urine Bilirubin Dipstick Negative (Negative); Urine Clarity Clear (Clear); Urine Urobilinogen Normal (Normal)
[2021-01-26 16:38] LABS: Red Blood Cells-Urine 10-25 SEEN /hpf (0-5); Squamous Epithelial Cells - UA 0-5 SEEN /hpf (5-10)
[2021-01-26] MEDS: Morphine 4 MG/ML Syringe IV (16:47)
[2021-01-26] MEDS: Ondansetron 4 MG/2 ML Vial IV (16:47)
--- NOTE | 2021-01-26 17:47 | EDS_ITS ---
HPI HPI - GI History of Present Illness Chief Complaint: Abd Pain Informant: patient Abdominal Pain/Flank Pain Onset: Today (Patient reports pain started somewhat abruptly this morning) Context: Sudden Onset Timing: Continuous Quality: - (Pain) Location: RLQ Current Severity: Moderate Maximum Severity: Severe Worsened by: Movement Relieved by: Nothing Nausea/Vomiting/Emesis GI Symptom: Positive for Nausea; Negative for Vomiting Onset: Today Diarrhea/Melena/Hematochezia GI Symptom: Negative for Diarrhea, Melena and Hematochezia Associated Symptoms Associated Symptoms: Negative for Dysuria, Frequency, Hematuria and Urgency LMP: Patient states menses started last week on Tuesday as scheduled. Narrative Narrative: Patient is a 30-year-old G0, P0 female with no gynecologic past medical history. She states her last menses started January 19. Lasted for 5 days. She has had recurrence of bleeding starting this week. She states it is brown which is abnormal and appears thicker. She denies history of ovarian cyst, endometriosis or salpingitis. She denies dysuria, frequency, urgency or hematuria. She denies flank pain. There is no history of renal ureterolithiasis. Patient had lunch at noon. She had fried rice. She denies history of biliary disease. There is no family history of biliary disease. She denies respiratory symptoms. She denies fever or chills. She denies history of trauma. She has not noted a rash. Prior similar symptoms: No Recent Illness/Hospitalization: No PFSH PFS Medical History Anxiety Kidney stones POTS (postural orthostatic tachycardia syndrome) Home Medications sertraline 100 mg tablet 50 mg PO DAILY tab 08/06/20 [History Last Taken Unknown] levonorgestrel 20 mcg/24 hours (6 yrs) 52 mg intrauterine device 1 device INTRA- UTER ONCE 08/28/20 [History Last Taken Unknown] metoprolol succinate [Toprol XL] 50 mg PO DAILY 01/26/21 [History Last Taken Unknown] naproxen 500 mg PO BID #20 tab 01/26/21 [Rx Last Taken Unknown] oxycodone-acetaminophen 1 tab PO Q6H PRN PRN 5 Days #20 tablet 01/26/21 [Rx Last Taken Unknown] Allergy/AdvReac Type Severity Reaction Status Date / Time gluten AdvReac Vomiting Verified 01/26/21 15:04 Family History Father Hypertension Surgical History History of D&C No significant past surgical history Social History adopted: No household members: family housing: house number of children: 1 current occupational status: employed current occupation: Self employed pets and animals: Yes history of recent travel: No Smoking Status: Never smoker second hand exposure: No alcohol intake: current alcohol intake frequency: holidays/special occasions only substance use type: does not use diet: gluten free what type of physical activity do you participate in: other details: Crossfit seatbelt use: always do you feel safe at home: Yes additional social history: [place] ROS ED Constitutional Constitutional ED: Denies chills, fever(s), subjective or sweats ENT ENT ED: Denies ear pain, rhinorrhea or sore throat Cardiovascular Cardiovascular: Denies chest pain, orthopnea, palpitations, paroxysmal nocturnal dyspnea or racing heartbeat Respiratory/Chest Respiratory/Chest: Denies cough, dyspnea, dyspnea on exertion, orthopnea, paroxysmal nocturnal dyspnea or sputum Gastrointestinal Gastrointestinal: Reports abdominal pain and nausea; Denies constipation, diarrhea, melena or vomiting Genitourinary Genitourinary ED: Denies dysuria, hematuria or urinary frequency Musculoskeletal Musculoskeletal: Denies arthralgias, myalgias or neck pain Integumentary Denies rash Neurologic Neurologic: Denies headache(s) or weakness Endocrine Endocrinology: Denies polydipsia, polyphagia or polyuria EXAM Physical Exam Const Vital Signs: 01/26/21 15:03 01/26/21 18:04 Temperature 96 F L Temperature Source Temporal Pulse Rate 68 74 Respiratory Rate 16 16 Blood Pressure 120/75 118/70 Blood Pressure Mean 90 86 Pulse Ox 100 99 Oxygen Delivery Method Room Air Positive well nourished and well developed; Negative for obese General Appearance ED: well developed; Negative for pallor Nutritional Appearance: Negative for obese HEENT Reports TM's clear and moist mucous membranes normocephalic and atraumatic Tympanic Membrane ED: Yes TM's clear Eyes PERRL and EOMs intact bilaterally General Eye ED: Negative for pale conjunctiva or scleral icterus Neck no lymphadenopathy, supple and no JVD Resp normal respiratory effort and clear to auscultation bilaterally GI non-distended and no masses; Negative for non-tender Auscultation: hypoactive bowel sounds; Negative for normoactive bowel sounds Palpation: soft and tender RLQ and Estrada's sign; Negative for hepatomegaly or splenomegaly Back/Spine no CVA tenderness Cervical Spine: Negative for cervical spine tenderness Thoracic Spine / Upper Back: Negative for thoracic spinal tenderness Lumbar Spine / Lower Back: Negative for lumbar spinal tenderness Extremity full ROM General Extremety ED: Negative for edema or tenderness General Extremity: Negative for edema Neuro CN's II-XII intact bilaterally and no sensory deficits noted Sensorium / Orientation: alert, oriented to person, oriented to place, oriented to time and orientation impaired Motor Exam: strength 5/5 throughout Psych mental status grossly normal and thought process normal Skin no wounds General Skin Exam: Negative for jaundice or pallor Lesions: no lesions Rashes: no rashes MDM MDM MDM Narrative Medical decision making narrative: Differential diagnosis includes a calculus cholecystitis, cholelithiasis biliary colic, cholecystitis, obstructing ureteral stone lower lobe pneumonia, this is doubtful because patient has no respiratory symptoms or auscultatory findings to suggest pneumonia. Appropriate blood work was ordered. Ultrasound was ordered. Ultrasound will not be performed until 1830 since patient had fried rice for lunch. test was obtained because of the abnormal menses. test was negative. Lab Data Attestation: I reviewed the patient's lab results. Lab results narrative: Patient is presently and per doomed reason for hematuria. Ultrasound reveals no abnormality of the gallbladder. There is multiple kidney stones with the largest measuring 1 cm. There is also evidence of hydronephrosis suspect due to obstructing ureteral stone. Patient states she had minimal improvement after morphine. She was given IV Toradol since renal function is normal and her pain has resolved. Will repeat for her to Dr. Ida Brown who is on-call for urology. Labs: Laboratory Results - last 24 hr 01/26/21 01/26/21 01/26/21 15:50 15:50 15:50 WBC 10.5 RBC 4.23 Hgb 12.6 Hct 39.1 MCV 92.4 MCH 29.8 MCHC 32.2 RDW Std Deviation 43.4 RDW Coeff of Carmen 12.7 Plt Count 256 MPV 10.8 Immature Gran % (Auto) 0.300 Neut % (Auto) 75.2 H Lymph % (Auto) 15.3 L [place] % (Auto) 8.0 Eos % (Auto) 0.9 Baso % (Auto) 0.3 Absolute Neuts (auto) 7.9 H Absolute Lymphs (auto) 1.61 Nucleated RBC % 0 Sodium 140 Potassium 4.0 Chloride 109 H Carbon Dioxide 27.0 Anion Gap 4 L BUN 15 Creatinine 0.84 Estim Creat Clear Calc 86.10 Est GFR (MDRD) Af Amer 104 Est GFR (MDRD) Non-Af 86 BUN/Creatinine Ratio 17.9 Glucose 108 H Calcium 9.1 Total Bilirubin Direct Bilirubin AST ALT Alkaline Phosphatase Total Protein Albumin Globulin Serum , Qual NEGATIVE Urine Color Urine Clarity Urine pH Ur Specific [place] Urine Protein Urine Glucose (UA) Urine Ketones Urine Occult Blood Urine Nitrite Urine Bilirubin Urine Urobilinogen Ur Leukocyte Esterase Urine RBC Urine WBC Ur Squamous Epith Cells Urine Bacteria Urine Mucus 01/26/21 01/26/21 15:50 16:15 WBC RBC Hgb Hct MCV MCH MCHC RDW Std Deviation RDW Coeff of Carmen Plt Count MPV Immature Gran % (Auto) Neut % (Auto) Lymph % (Auto) [place] % (Auto) Eos % (Auto) Baso % (Auto) Absolute Neuts (auto) Absolute Lymphs (auto) Nucleated RBC % Sodium Potassium Chloride Carbon Dioxide Anion Gap BUN Creatinine Estim Creat Clear Calc Est GFR (MDRD) Af Amer Est GFR (MDRD) Non-Af BUN/Creatinine Ratio Glucose Calcium Total Bilirubin 0.40 Direct Bilirubin 0.12 AST 21 ALT 27 Alkaline Phosphatase 79 Total Protein 8.4 H Albumin 4.2 Globulin 4.2 Serum , Qual Urine Color Yellow Urine Clarity Clear Urine pH 7.0 Ur Specific [place] 1.015 Urine Protein 30 H Urine Glucose (UA) Normal Urine Ketones Negative Urine Occult Blood 150 H Urine Nitrite Negative Urine Bilirubin Negative Urine Urobilinogen Normal Ur Leukocyte Esterase 25 H Urine RBC 10-25 SEEN Urine WBC 0 SEEN Ur Squamous Epith Cells 0-5 SEEN Urine Bacteria 0 SEEN Urine Mucus 0 SEEN Radiography Diagnostic Testing: Radiology Impression Gallbladder Ultrasound 01/26/21 18:30 IMPRESSION: Moderate right hydronephrosis with multiple stones seen within the calyces, largest measuring 1 cm. Electronically Signed: Manny Bee MD at 18:59 EDT Tel , Service support , Discharge Plan Triage Chief Complaint: Abd Pain ED Provider: Walter Oliveira Dx/Rx/DC Orders Clinical Impression: Hydronephrosis concurrent with and due to calculi of kidney and ureter Instructions: ED Kidney Stone w/ Colic Prescriptions: New oxycodone-acetaminophen [oxycodone-acetaminophen] 1 TABLET tablet 1 tab PO Q6H PRN PRN (Reason: pain) 5 Days Qty: 20 RF: 0 naproxen 500 MG tablet 500 mg PO BID Qty: 20 RF: 0 No Action sertraline [Zoloft] 100 mg tablet 50 mg PO DAILY RF: 0 levonorgestrel 20 mcg/24 hours (6 yrs) 52 mg intrauterine device 20 mcg/24 hours (6 yrs) 52 mg intrauterine device 1 device INTRA-UTER ONCE RF: 0 metoprolol succinate [Toprol XL] 50 mg Tablet Extended Release 24 Hr 50 mg PO DAILY RF: 0 Primary Care Provider: Raul Preston Referrals: Raul Preston MD [Primary Care Provider] - Ida Delaeny MD [STAFF PHYSICIAN] - 3-5 Days Disposition Disposition: Home, Self Care
[2021-01-26] MEDS: Metoclopramide 10 MG/2 ML Vial 5 MG IV (17:57)
[2021-01-26] MEDS: Ketorolac 15 MG/ML Vial IV (17:57)
[2021-01-26 18:04] VITALS: BP 118/70; PULSE 74; RESP 16; O2SAT 99
--- NOTE | 2021-01-26 18:30 | US_ITS ---
INDICATION: RT SIDE ABD PAIN- RLQ EXAMINATION: US Abdomen RUQ (limited) TECHNIQUE: Wynne-scale and color Doppler imaging was performed of the right upper abdominal quadrant. COMPARISON: None. Findings: The liver is homogenous and normal in echogenicity and echotexture. There is no evidence of contour nodularity. No focal hepatic mass is identified. The main portal vein is normal in size and patent demonstrating hepatopetal flow. The gallbladder is unremarkable without evidence of stones, wall thickening or pericholecystic fluid. Sonographic Estrada''s tenderness is not appreciated. There is no evidence of intrahepatic biliary ductal dilatation. The CBD is nondilated measuring 3 mm at the level of the tessa hepatis. The visualized portions of the pancreas are unremarkable without evidence of focal or diffuse enlargement. Specifically, the tail is obscured by overlying bowel gas. Right kidney measures 12.2 cm in length. It is normal in echogenicity. There are multiple stones seen within the calyces, largest measuring 1 cm.. There is moderate hydronephrosis. US/Gallbladder IMPRESSION: Moderate right hydronephrosis with multiple stones seen within the calyces, largest measuring 1 cm. Electronically Signed: Manny Bee MD at 18:59 EDT Tel , Service support ,
[2021-01-26 18:33] LABS: AST(SGOT) 21 U/L (15-37); Alanine Aminotransfer ALT/SGPT 27 U/L (13-56); Albumin, Serum 4.2 g/dL (3.2-5.0); Alkaline Phosphatase 79 U/L (45-117); Bilirubin, Direct 0.12 mg/dL (0.00-0.30); Globulin 4.2 g/dL (2.2-4.2); Protein, Total 8.4 g/dL (6.4-8.2)
== END 2021-01-26 20:23 | disposition home or self-care (01) ==
PROVIDERS: Emergency Provider Emergency Medicine; PCP Family Medicine
DX: N13.2 Hydronephrosis with renal and ureteral calculous obstruction (principal); F41.9 Anxiety disorder, unspecified; Z79.899 Other long term (current) drug therapy; Z79.3 Long term (current) use of hormonal contraceptives
CPT/HCPCS: 76705; 80048; 80076; 81001; 84703; 85025; 96374; 96375; 99283; A4216; J2405

== ENCOUNTER → 2021-02-07 09:45 | Outpatient (CLI) | payer OTHER, SELFPAY ==
--- NOTE | 2021-02-07 09:48 | CT_ITS ---
STUDY: CT ABDOMEN AND PELVIS WITHOUT CONTRAST REASON FOR EXAM: Female, 30 years old. FLANK PAIN,KIDNEY STONES RADIATION DOSAGE (If Supplied By Facility): CTDIvol = ( 6.58 ) mGy, DLP = ( 314.18 ) mGycm TECHNIQUE: Transaxial images were obtained from the dome of the diaphragm to the symphysis pubis without oral contrast, and without intravenous contrast. Sagittal and coronal images were reconstructed. Individualized dose optimization techniques were used for this CT. COMPARISON: None. FINDINGS: The visualized lung bases are unremarkable. The visualized portions of the heart are within normal limits. Normal liver. Normal gallbladder and extrahepatic biliary system. Normal spleen. Normal pancreas. Normal bilateral adrenal glands. Bilateral small nonobstructing renal stones. No hydronephrosis, ureteral stone, or ureteral dilatation. Normal visualized stomach. Normal small intestine. Normal colon. The appendix is visualized and appears normal. Normal abdominal aorta. Normal inferior vena cava. Normal retroperitoneum. Normal urinary bladder. Intrauterine device within the uterus. Normal abdominal wall. Normal osseous structures. CT/Abdomen/Pelvis without Cont IMPRESSION: Bilateral small nonobstructing renal stones. Electronically Signed: Herber Isaac MD at 12:15 EDT Tel , Service support ,
== END ==
PROVIDERS: PCP Family Medicine; Referring Provider Urology; Visit Provider Urology
DX: N20.0 Calculus of kidney (principal); R10.9 Unspecified abdominal pain
CPT/HCPCS: 74176

== ENCOUNTER → 2021-02-12 08:38 | Outpatient (CLI) | payer OTHER, SELFPAY ==
--- NOTE | 2021-02-12 08:59 | RAD_ITS ---
HISTORY: KIDNEY STONE EXAMINATION/TECHNIQUE: XR Abdomen 1 View: COMPARISON: CT abdomen and pelvis 02/07/21 FINDINGS: LINES AND TUBES: None. BOWEL GAS PATTERN: Non-obstructive. No bowel or stomach distention. FREE AIR: Not assessed on a single supine view. ORGANOMEGALY: Not seen. CALCIFICATIONS: Multiple calcifications bilaterally in the region of the kidneys corresponding to CT findings. BONES AND SOFT TISSUES: No acute pathology. IUD in place. RAD/Abdomen Single View IMPRESSION: Bilateral radiodense nephrolithiasis. at 1731 Reported and signed by: Jason Hankins MD Electronically Signed: Jason Hankins MD at 17:30 EDT Tel , Service support ,
== END ==
PROVIDERS: PCP Family Medicine; Referring Provider Urology; Visit Provider Urology
DX: N20.0 Calculus of kidney (principal)
CPT/HCPCS: 74018

== ENCOUNTER 2021-02-16 12:59 | Day surgery (SDC) | payer OTHER, SELFPAY ==
[2021-02-16] VITALS (7 sets, daily range): BP systolic 107–120; BP diastolic 62–70; PULSE 60–70; RESP 16–18; TEMP 36.7–36.9; O2SAT 98–100; BMI 24.7
[2021-02-16 13:35] LABS: Internal QC Validated? YES +Cl - CLEAR BKGD; Pregnancy, Urine Negative Negative
--- NOTE | 2021-02-16 13:46 | PCM.OPRPT ---
Problems Associated Problem List Diagnoses (1) Right renal stone: Report of Operation Date of Procedure: 02/16/21 Pre-Operative Diagnosis: Right renal calculi Post-Operative Diagnosis: Same Surgery/Procedure Performed:: Right renal extracorporal shockwave lithotripsy Surgeon: Ida Delaney Type of Anesthesia: General Description of Procedure: The patient is a 30-year-old female who has passed stones in the past. And further evaluation identified as having multiple bilateral calculi. Most of the time the stone should passes come from her right kidney. On KUB multiple stones are seen. Informed consent was obtained for definitive intervention for these stones that are nonobstructing. The patient was taken to the operating room and placed on the operating room table. Anesthesia monitored the head, neck, airway, IV access and vital signs throughout the case. Once anesthesia was appropriate ministered, the patient was placed in appropriate positioning on the table. The lithotripter was able to identify the stones and 3000 shocks were applied. The stones appeared to be well fragmented at the conclusion of the case. The patient was then awakened and taken recovery room in good condition. There were no complications during this procedure. Grafts/Implants Used: none Complications none Admit VTE Documentation VTE Present on Admission: Yes VTE Mechan Device Prophylaxis: SCD's VTE Pharm Prophylaxis ordered?: No Reason prophylaxis not ordered:: Treatment Not Indicated
--- NOTE | 2021-02-16 13:49 | PCM.DC ---
Discharge Instructions Diet Discharge Diet: No restrictions Activity Discharge Activity: Return to Normal Activity Dressing / Incision Call your doctor if you observe: Fever of 101 or Higher, Inability to urinate, Inability to have a bowel movement and Uncontrolled pain Follow Up Care Please Follow Up With: Ida Delaney MD When: in the office in 2 to 3 weeks with a KUB Test Results: Test results from this visit will be discussed in further detail at your follow-up appointment, if applicable. Discharge Plan Admission Attending Provider: Ida Delaney Primary Care Provider: Raul Preston Discharge Orders/Prescriptions Prescriptions: New oxycodone-acetaminophen [oxycodone-acetaminophen] 1 TABLET tablet 2 tab PO Q8H PRN PRN (Reason: Pain) 7 Days Qty: 20 RF: 0 cephalexin [cephalexin] 500 MG capsule 500 mg PO Q12 3 Days Qty: 6 RF: 0 Continued sertraline [Zoloft] 100 mg tablet 50 mg PO DAILY RF: 0 levonorgestrel 20 mcg/24 hours (6 yrs) 52 mg intrauterine device 20 mcg/24 hours (6 yrs) 52 mg intrauterine device 1 device INTRA-UTER ONCE RF: 0 metoprolol succinate [Toprol XL] 50 mg Tablet Extended Release 24 Hr 50 mg PO DAILY RF: 0 Referrals / Follow Up: Raul Preston MD [Primary Care Provider] - Disposition Disposition (needs filled in before D/C Order can be placed): Home, Self Care
[2021-02-16] MEDS: Lactated Ringers 1,000 ML 100 ML IV (13:55)
[2021-02-16] MEDS: Cefazolin 2 GM in 0.9% Normal Saline 100 ML IV (14:33)
== END 2021-02-16 16:54 | disposition home or self-care (01) ==
LOC: SDC 13:02 → AC 13:03
PROVIDERS: Anesthesiology; PCP Family Medicine; Referring Provider Urology; Visit Provider Urology
PROC: (CPT 50590; principal; 2021-02-16 15:25)
DX: N20.0 Calculus of kidney (principal); F41.9 Anxiety disorder, unspecified; Z79.899 Other long term (current) drug therapy
CPT/HCPCS: 00873; 50590; 81025; J7120; J2405

== ENCOUNTER 2021-04-13 10:29 | Day surgery (SDC) | payer OTHER, SELFPAY ==
[2021-04-13 10:55] VITALS: BP 122/59; PULSE 65; RESP 16; TEMP 36.4; O2SAT 100; BMI 25.7
[2021-04-13 10:58] LABS: Internal QC Validated? YES +Cl - CLEAR BKGD; Pregnancy, Urine Negative Negative
[2021-04-13] MEDS: Lactated Ringers 1,000 ML 100 ML IV (11:12)
--- NOTE | 2021-04-13 12:59 | PCM.HP.STD ---
HPI - General HPI Narrative BETTE LUIS, is a 30 F who presents for definitive management of known left renal calculi. No evidence of urinary tract infection, culture negative, IUD in place. Informed consent was obtained. [facility] Medical History (Updated 04/13/21 @ 13:[address] Ida Delaney MD) Alcohol use Anxiety Cardiology follow-up encounter COVID-19 Dietary restriction History of echocardiogram Kidney stones Left renal stone Non-smoker POTS (postural orthostatic tachycardia syndrome) Right renal stone Wears glasses Home Medications sertraline 100 mg tablet 50 mg PO DAILY tab 08/06/20 [History Last Taken Unknown] levonorgestrel 20 mcg/24 hours (7 yrs) 52 mg intrauterine device 1 device INTRA-UTER ONCE 08/28/20 [History Last Taken Unknown] metoprolol succinate [Toprol XL] 50 mg PO DAILY 01/26/21 [History Last Taken 02/16/21 09:30] Allergy/AdvReac Type Severity Reaction Status Date / Time gluten AdvReac Vomiting Verified 04/13/21 10:53 Family History Father Hypertension Surgical History History of hysteroscopy History of lithotripsy Hx of wisdom tooth extraction Social History adopted: No household members: family housing: house number of children: 1 current occupational status: employed current occupation: Self employed pets and animals: Yes history of recent travel: No Smoking Status: Never smoker second hand exposure: No alcohol intake: current alcohol intake frequency: holidays/special occasions only substance use type: does not use diet: gluten free what type of physical activity do you participate in: other details: Crossfit seatbelt use: always do you feel safe at home: Yes additional social history: [place] Constitutional Constitutional: Denies body ache(s), chills, fever(s), headache(s) or lethargy Eyes Eyes: Reports systems reviewed and no addt'l complaints, except as documented ENT HEENT: Reports systems reviewed and no addt'l complaints, except as documented Cardiovascular Cardiovascular: Denies abdominal pain, chest pain or dyspnea Respiratory/Chest Respiratory/Chest: Reports systems reviewed and no addt'l complaints, except as documented Gastrointestinal Gastrointestinal: Reports systems reviewed and no addt'l complaints, except as documented Genitourinary Genitourinary: Denies abdominal discomfort, burning urination, hematuria or low back pain Musculoskeletal Musculoskeletal: Reports systems reviewed and no addt'l complaints, except as documented Integumentary Integumentary: Reports systems reviewed and no addt'l complaints, except as documented Neurologic Neurologic: Reports systems reviewed and no addt'l complaints, except as documented Psychiatric Psychiatric: Reports systems reviewed and no addt'l complaints, except as documented Endocrine Endocrinology: Reports systems reviewed and no addt'l complaints, except as documented Hematologic/Lymphatic Hematologic/Lymphatic: Reports systems reviewed and no addt'l complaints, except as documented Allergic/Immunologic Allergic/Immunologic: Reports systems reviewed and no addt'l complaints, except as documented Vital Signs Vital Signs Vital Signs: 04/13/21 10:55 Temperature 97.6 F L Temperature Source Temporal Pulse Rate 65 Respiratory Rate 16 Respiratory Pattern Normal Blood Pressure 122/59 H Blood Pressure Mean 80 Blood Pressure Source Monitor Blood Pressure Position Semi-Fowlers Blood Pressure Location Left Arm Pulse Ox 100 Oxygen Delivery Method Room Air Weight Weight: 68 kg Body Mass Index (BMI) 25.7 Physical Exam Const alert, oriented x3 and no apparent distress General Appearance: cooperative, comfortable, well kempt and well developed HEENT normocephalic, head/scalp atraumatic, hearing grossly normal bilaterally, external ears normal, external nose normal, moist oral mucous membranes, dentition normal and gingiva normal Eyes General Eye: normal appearance of both eyes Neck supple General: trachea midline Lymph Lymphatic: no lymphedema noted Chest inspection of chest normal Chest: symmetrical chest wall rise Resp normal respiratory effort, normal air movement, no retractions and no use of accessory muscles Cardio regular rate and regular rhythm GI soft to palpation, non-tender and non-distended no CVA tenderness Back/Spine no CVA tenderness Extremity normal to inspection Skin no rashes or lesions noted and no wounds Neuro oriented x3, CN's II-XII intact bilaterally and moves all extremities Psych mental status grossly normal, thought process normal, cooperative and affect normal Results Lab / Micro Data Labs: Laboratory Results - last 24 hr 04/13/21 10:45: Urine Test Negative Assessment & Plan Assessment/Plan (1) Left renal stone: PLAN: Proceed with left extracorporal shockwave lithotripsy. Informed consent obtained. Procedure Criteria Type of Procedure Procedure Type: Elective Elective Risks - COVID COVID Risk Discussion: The surgeon/proceduralist and patient have discussed in detail the risk of exposure to and/or potential harm posed by the COVID-19 virus with having a surgery/procedure at this time versus the risk of delaying the surgery/procedure. It is not possible to know either the risk of delaying the surgery or procedure or chance of getting an infection with perfect accuracy, but a joint decision was made between the patient and the surgeon/proceduralist to proceed at this time with the scheduled surgery/procedure as indicated on the consent form.
--- NOTE | 2021-04-13 13:03 | PCM.OPRPT ---
Problems Associated Problem List Diagnoses (1) Left renal stone: Report of Operation Date of Procedure: 04/13/21 Pre-Operative Diagnosis: Left renal stones Post-Operative Diagnosis: Same Surgery/Procedure Performed:: Left renal extracorporal shockwave lithotripsy Surgeon: Ida Delaney Type of Anesthesia: General Description of Procedure: The patient is a 30-year-old female with known left renal calculi who now presents for definitive surgical intervention. Informed consent was obtained after discussion of the risks benefits and alternatives. Patient was taken to the operating room and placed on the operating room table. Anesthesia monitored the head, neck, airway, IV access and vital signs throughout the case. Once anesthesia was appropriately administered the patient was aligned with a lithotripter, there were 3 stones that were visualized and 2500 shocks were applied, and the stones could no longer be seen. The case was stopped at 2500 shocks. There were no complications during this procedure. The patient was then awakened and taken to recovery room in good condition. Grafts/Implants Used: None Complications None Admit VTE Documentation VTE Present on Admission: Yes VTE Mechan Device Prophylaxis: SCD's VTE Pharm Prophylaxis ordered?: No Reason prophylaxis not ordered:: Treatment Not Indicated
--- NOTE | 2021-04-13 13:34 | PCM.DC ---
Discharge Instructions Diet Discharge Diet: No restrictions Activity May resume sexual activity in: No Restrictions Dressing / Incision Call your doctor if you observe: Fever of 101 or Higher, Inability to urinate, Inability to have a bowel movement and Uncontrolled pain Follow Up Care Please Follow Up With: Ida Delaney MD When: 2-3 weeks with KUB Test Results: Test results from this visit will be discussed in further detail at your follow-up appointment, if applicable. Discharge Plan Admission Attending Provider: Ida Delaney Primary Care Provider: Raul Preston Discharge Orders/Prescriptions Prescriptions: New oxycodone-acetaminophen [Percocet] 5-325 mg tablet 1 tab PO Q8H PRN (Reason: pain) 7 Days Qty: 20 RF: 0 cephalexin [cephalexin] 500 MG capsule 500 mg PO Q12 3 Days Qty: 6 RF: 0 Continued sertraline [Zoloft] 100 mg tablet 50 mg PO DAILY RF: 0 levonorgestrel 20 mcg/24 hours (6 yrs) 52 mg intrauterine device 20 mcg/24 hours (6 yrs) 52 mg intrauterine device 1 device INTRA-UTER ONCE RF: 0 metoprolol succinate [Toprol XL] 50 mg Tablet Extended Release 24 Hr 50 mg PO DAILY RF: 0 Referrals / Follow Up: Raul Preston MD [Primary Care Provider] - Disposition Disposition (needs filled in before D/C Order can be placed): Home, Self Care
[2021-04-13 14:04] VITALS: BP 120/77; BP 122/59; PULSE 66; RESP 16; TEMP 36.6; O2SAT 98
[2021-04-13 14:10] VITALS: BP 122/59; BP 122/65; PULSE 64; RESP 16; O2SAT 98
[2021-04-13 14:15] VITALS: BP 122/59; BP 123/72; PULSE 64; RESP 6; O2SAT 99
[2021-04-13 14:20] VITALS: BP 122/59; BP 129/67; PULSE 70; RESP 16; TEMP 37; O2SAT 100
[2021-04-13 15:04] VITALS: BP 122/59; BP 142/74; PULSE 66; RESP 16; TEMP 36.4; O2SAT 99
== END 2021-04-13 15:05 | disposition home or self-care (01) ==
LOC: SDC 10:30 → AC 10:32
PROVIDERS: Anesthesiology; PCP Family Medicine; Referring Provider Urology; Visit Provider Urology
PROC: (CPT 50590; principal; 2021-04-13 11:50)
DX: N20.0 Calculus of kidney (principal); F41.9 Anxiety disorder, unspecified; I49.8 Other specified cardiac arrhythmias; I10 Essential (primary) hypertension; Z79.899 Other long term (current) drug therapy
CPT/HCPCS: 50590; 81025; J7120; J2405

== ENCOUNTER → 2021-10-19 | Outpatient (CLI) | payer OTHER, SELFPAY ==
--- NOTE | 2021-10-19 15:29 | US_ITS ---
STUDY: ULTRASOUND OF THE FEMALE PELVIS - COMPLETE REASON FOR EXAM: Female, 31 years old. AUB TECHNIQUE: Endovaginal. Transvaginal US was obtained to better visualized the ovaries. COMPARISON: None. FINDINGS: The uterus is anteverted and is in a midline position. The uterus measures 9.3x4.4 cm. Normal uterine cervix. The endometrium measures 4 mm in thickness, and is hyperechoic. There is no demonstrated endometrial mass. There is no demonstrated myometrial mass. I.U.D. - The patient does have an I.U.D. The right ovary is visualized. The right ovary measures 2.6 x 2.9 cm. Cyst measures 17 mm. There is no visualized right adnexal mass or complex lesion. There is normal arterial and normal venous vascularity. The left ovary is visualized. The left ovary measures 2.8 x 2.3 cm. There is no left ovarian cyst or ovarian mass. There is no visualized left adnexal mass or complex lesion. There is normal arterial and normal venous vascularity. There is minimal fluid in the cul-de-sac. Urinary bladder volume is 115 cc US/Pelvic (Non ) IMPRESSION: There is minimal fluid in the cul-de-sac. An intrauterine device is identified within the uterus. Electronically Signed: Delano Nguyen MD at 16:17 EDT ,
--- NOTE | 2021-10-19 15:29 | US_ITS ---
STUDY: ULTRASOUND OF THE FEMALE PELVIS - COMPLETE REASON FOR EXAM: Female, 31 years old. AUB TECHNIQUE: Endovaginal. Transvaginal US was obtained to better visualized the ovaries. COMPARISON: None. FINDINGS: The uterus is anteverted and is in a midline position. The uterus measures 9.3x4.4 cm. Normal uterine cervix. The endometrium measures 4 mm in thickness, and is hyperechoic. There is no demonstrated endometrial mass. There is no demonstrated myometrial mass. I.U.D. - The patient does have an I.U.D. The right ovary is visualized. The right ovary measures 2.6 x 2.9 cm. Cyst measures 17 mm. There is no visualized right adnexal mass or complex lesion. There is normal arterial and normal venous vascularity. The left ovary is visualized. The left ovary measures 2.8 x 2.3 cm. There is no left ovarian cyst or ovarian mass. There is no visualized left adnexal mass or complex lesion. There is normal arterial and normal venous vascularity. There is minimal fluid in the cul-de-sac. Urinary bladder volume is 115 cc US/Transvaginal Non- IMPRESSION: There is minimal fluid in the cul-de-sac. An intrauterine device is identified within the uterus. Electronically Signed: Delano Nguyen MD at 16:17 EDT ,
== END | disposition home or self-care (01) ==
PROVIDERS: PCP Family Medicine; Visit Provider Obstetrics & Gynecology
DX: R10.2 Pelvic and perineal pain (principal); Z97.5 Presence of (intrauterine) contraceptive device
CPT/HCPCS: 76830; 76856

== ENCOUNTER 2021-11-30 11:32 | Emergency (ER) | payer OTHER, SELFPAY ==
[2021-11-30 11:33] VITALS: BP 130/83; PULSE 67; RESP 17; TEMP 36.5; O2SAT 100; BMI 26.5
--- NOTE | 2021-11-30 13:20 | EDS_ITS ---
HPI History of Present Illness Chief Complaint: Dizziness Informant: patient Onset/Context/Timing Onset: Yesterday Context: Sudden Onset Timing: Intermittent Quality: Sharp Location: Bilateral temporal area Worsened by: Nothing Relieved by: Nothing Narrative Narrative: Patient presents with syncope and dizziness that has been intermittent over the past couple days. Patient states she feels lightheaded. Patient states this comes on while she is standing at times. Patient states sometimes it comes on when she first stands up and other times it comes on after she has been standing for a while. Patient states she did pass out a couple times with this. Patient states that after her syncopal episode she had sharp bitemporal headaches that resolved. Patient states nothing makes it better nothing makes it worse. Patient denies any fevers or chills. Patient does admit to some palpitations with this. Patient states she has had some nausea and vomiting as well. PFSH [facility] [place] Medical History Alcohol use Anxiety Cardiology follow-up encounter COVID-19 Dietary restriction History of echocardiogram Kidney stones Left renal stone Non-smoker POTS (postural orthostatic tachycardia syndrome) POTS (postural orthostatic tachycardia syndrome) Right renal stone Wears glasses Home Medications sertraline 100 mg tablet (Zoloft) 50 mg PO DAILY 08/06/20 [History Last Taken Unknown] levonorgestrel 20 mcg/24 hours (7 yrs) 52 mg intrauterine device (Mirena) 1 device intrauterine ONCE 08/28/20 [History Last Taken Unknown] cephalexin 500 mg capsule 500 mg PO Q12 post-operative 3 days #6 CAPSULES 04/13/21 [Rx Last Taken Unknown] oxycodone-acetaminophen 5 mg-325 mg tablet (Percocet) 1 tab PO Q8H PRN pain 7 days #20 tabs 04/13/21 [Rx Last Taken Unknown] Allergy/AdvReac Type Severity Reaction Status Date / Time gluten AdvReac Vomiting Verified 04/13/21 10:53 Family History Father Hypertension Surgical History History of hysteroscopy History of lithotripsy Hx of wisdom tooth extraction Social History adopted: No household members: family housing: house number of children: 1 current occupational status: employed current occupation: Self employed pets and animals: Yes history of recent travel: No Smoking Status: Never smoker second hand exposure: No alcohol intake: current alcohol intake frequency: holidays/special occasions only substance use type: does not use diet: gluten free what type of physical activity do you participate in: other details: Crossfit seatbelt use: always do you feel safe at home: Yes additional social history: [place] ED Constitutional Constitutional ED: Reports sweats; Denies chills or fever(s) Eyes Eyes: Denies blurry vision or change in vision ENT ENT ED: Denies rhinorrhea or sore throat Cardiovascular Cardiovascular: Reports palpitations; Denies chest pain Respiratory/Chest Respiratory/Chest: Denies cough or dyspnea Gastrointestinal Gastrointestinal: Reports nausea and vomiting Genitourinary Genitourinary ED: Denies dysuria or hematuria Musculoskeletal Musculoskeletal: Denies back pain or neck pain Integumentary Denies abscess or rash Neurologic Neurologic: Reports headache(s); Denies weakness Allergic/Immunologic Allergic/Immunologic ED: Denies mouth swelling or urticaria EXAM Physical Exam Const Vital Signs: 11/30/21 11:33 11/30/21 12:34 11/30/21 14:04 Temperature 97.7 F L Temperature Source Temporal Pulse Rate 67 Pulse Rate [Lying] 57 L Pulse Rate [Sitting (for 1 minute prior to obtaining)] 58 L Pulse Rate [Standing (for 1 minute prior to obtaining)] 55 L Respiratory Rate 17 Respiratory Effort Normal Non-Labored Respiratory Pattern Normal Blood Pressure 130/83 H Blood Pressure [Lying] 132/78 H Blood Pressure [Sitting (for 1 minute prior to obtaining)] 134/82 H Blood Pressure [Standing (for 1 minute prior to obtaining)] 130/79 H Blood Pressure Mean 98 Blood Pressure Mean [Lying] 96 Blood Pressure Mean [Sitting (for 1 minute prior to obtaining)] 99 Blood Pressure Mean [Standing (for 1 minute prior to obtaining)] 96 Pulse Ox 100 Oxygen Delivery Method Room Air Positive well nourished and well developed General Appearance ED: well developed HEENT Reports moist mucous membranes Neck supple and no JVD Resp normal respiratory effort and clear to auscultation bilaterally Cardio regular rate, regular rhythm and no murmurs GI normal to inspection, nondistended, normoactive bowel sounds and non-tender Palpation: soft Extremity normal to inspection General Extremety ED: Negative for edema or tenderness General Extremity: Negative for edema Neuro oriented x3, CN's II-XII intact bilaterally and no sensory deficits noted Sensorium / Orientation: alert Motor Exam: strength 5/5 throughout Psych mental status grossly normal Skin no rashes or lesions noted MDM MDM MDM Narrative Medical decision making narrative: EKG was obtained. On my interpretation, it showed a sinus bradycardia with a rate of 54. FL interval, QRS interval, and QTc intervals were all normal. [place]aberry was normal. There are no acute ST or T wave changes. Orthostatic vital signs were obtained and were normal. CBC and comprehensive metabolic profile was obtained and was normal. High-sensitivity troponin was normal. Serum hCG was negative. Urinalysis does not show any evidence of urinary tract infection or hematuria. CT scan of the brain was obtained. There is no acute intracranial abnormality. This was interpreted by the radiologist and reviewed by myself. Patient was advised of her findings. Patient was instructed to follow-up with her primary care physician for further evaluation. Patient understood and was agreeable with the plan. All questions were answered. Lab Data Attestation: I reviewed the patient's lab results. Labs: Laboratory Results - last 24 hr 11/30/21 11/30/21 11/30/21 13:30 13:30 13:30 WBC 5.8 RBC 4.37 Hgb 13.2 Hct 41.4 MCV 94.7 MCH 30.2 MCHC 31.9 L RDW Std Deviation 43.2 RDW Coeff of Carmen 12.4 Plt Count 276 MPV 11.9 Immature Gran % (Auto) 0.300 Neut % (Auto) 58.7 Lymph % (Auto) 26.7 [place] % (Auto) 12.3 H Eos % (Auto) 1.7 Baso % (Auto) 0.3 Absolute Neuts (auto) 3.4 Absolute Lymphs (auto) 1.54 Nucleated RBC % 0 Sodium 139 Potassium 4.2 Chloride 106 Carbon Dioxide 28.0 Anion Gap 5 BUN 12 Creatinine 0.72 Estim Creat Clear Calc 99.56 Est GFR (MDRD) Af Amer 123 Est GFR (MDRD) Non-Af 102 BUN/Creatinine Ratio 16.7 Glucose 81 Calcium 9.5 Total Bilirubin 0.40 AST 18 ALT 23 Alkaline Phosphatase 76 Troponin I High Sens < 3 L Total Protein 8.1 Albumin 4.0 Globulin 4.1 Albumin/Globulin Ratio 1.0 Serum , Qual NEGATIVE Urine Color Urine Clarity Urine pH Ur Specific [place] Urine Protein Urine Glucose (UA) Urine Ketones Urine Occult Blood Urine Nitrite Urine Bilirubin Urine Urobilinogen Ur Leukocyte Esterase Urine RBC Urine WBC Ur Squamous Epith Cells Urine Bacteria Urine Mucus 11/30/21 13:39 WBC RBC Hgb Hct MCV MCH MCHC RDW Std Deviation RDW Coeff of Carmen Plt Count MPV Immature Gran % (Auto) Neut % (Auto) Lymph % (Auto) [place] % (Auto) Eos % (Auto) Baso % (Auto) Absolute Neuts (auto) Absolute Lymphs (auto) Nucleated RBC % Sodium Potassium Chloride Carbon Dioxide Anion Gap BUN Creatinine Estim Creat Clear Calc Est GFR (MDRD) Af Amer Est GFR (MDRD) Non-Af BUN/Creatinine Ratio Glucose Calcium Total Bilirubin AST ALT Alkaline Phosphatase Troponin I High Sens Total Protein Albumin Globulin Albumin/Globulin Ratio Serum , Qual Urine Color Yellow Urine Clarity Clear Urine pH 7.0 Ur Specific [place] 1.005 Urine Protein Negative Urine Glucose (UA) Normal Urine Ketones Negative Urine Occult Blood Negative Urine Nitrite Negative Urine Bilirubin Negative Urine Urobilinogen Normal Ur Leukocyte Esterase Negative Urine RBC 0 SEEN Urine WBC 0 SEEN Ur Squamous Epith Cells 0 SEEN Urine Bacteria 0 SEEN Urine Mucus 0 SEEN Radiography Diagnostic Testing: Clinical Impression(s) from Imaging Studies Brain CT 11/30/21 13:23 IMPRESSION: Normal unenhanced CT scan of the brain. Electronically Signed: Arthur Hartley MD at 14:12 EDT , EKG Initial EKG: Attestation: I personally reviewed and interpreted this EKG as follows: Interpretation: No Acute Injury Pattern and Sinus Bradycardia (54) Discharge Plan Triage Chief Complaint: Dizziness ED Provider: Gregorio Valles Dx/Rx/DC Orders Clinical Impression: Syncope and collapse Instructions: ED Fainting, Uncertain Cause Prescriptions: No Action sertraline [Zoloft] 100 mg tablet 50 mg PO DAILY levonorgestrel 20 mcg/24 hours (6 yrs) 52 mg intrauterine device 20 mcg/24 hours (6 yrs) 52 mg intrauterine device 1 device INTRA-UTER ONCE Rx Instructions: as a single dose oxycodone-acetaminophen [Percocet] 5-325 mg tablet 1 tab PO Q8H PRN (Reason: pain) 7 Days Qty: 20 0RF cephalexin [cephalexin] 500 MG capsule 500 mg PO Q12 3 Days Qty: 6 0RF Primary Care Provider: Raul Preston Referrals: Raul Preston MD [Primary Care Provider] - 5-7 Days Disposition Disposition: Home, Self Care
--- NOTE | 2021-11-30 13:23 | CT_ITS ---
STUDY: CT BRAIN WITHOUT CONTRAST REASON FOR EXAM: Female, 31 years old. Headache RADIATION DOSAGE (If Supplied By Facility): CTDIvol = ( 44.99 ) mGy, DLP = ( 745.49 ) mGycm TECHNIQUE: Transaxial CT imaging of the brain was performed without administration of intravenous contrast material. Individualized dose optimization techniques were used for this CT. COMPARISON: No relevant priors. FINDINGS: Normal soft tissue structures. Normal calvarium. Normal size ventricles and extra-axial spaces for the patient''s age. Normal white matter tracts of the cerebral hemispheres. Normal basal ganglia and thalami. Normal brainstem. Normal cerebellum. There is no intracranial hemorrhage. There are no findings of an acute ischemic infarction. Normal visualized paranasal sinuses. CT/Brain/Head without Contrast IMPRESSION: Normal unenhanced CT scan of the brain. Electronically Signed: Arthur Hartley MD at 14:12 EDT ,
--- NOTE | 2021-11-30 13:24 | EKG12_ITS ---
Test Reason : DIZZINESS Blood Pressure : / mmHG Vent. Rate : 054 BPM Atrial Rate : 054 BPM P-R Int : 158 ms QRS Dur : 090 ms QT Int : 448 ms P-R-T Axes : 035 061 028 degrees QTc Int : 424 ms Sinus bradycardia Otherwise normal ECG Confirmed by YURIDIA PENG, LILLIAM ([id number]), continuity editor LAKEISHA GAMBLE ([id number]) on 12/02/2021 8:46:37 AM Referred By: GABINO Confirmed By:LILLIAM SHI MD
[2021-11-30] MEDS: 0.9% Normal Saline 1,000 ML 1000 ML IV (13:31)
[2021-11-30 13:36] LABS: Absolute Lymphocyte Count 1.54 X10^3/uL (0.83-4.51); Absolute Neutrophil Count 3.4 X10^3/uL (2.0-7.7); Basophil# 0.02 X10^3/uL; Basophil% 0.3 % (0-1); Eosinophils% 1.7 % (0-5); Hematocrit 41.4 % (37-47); Hemoglobin 13.2 g/dL (12.0-15.0); Lymphocyte # 1.54 X10^3/ul (0.83-4.51); Lymphocyte % 26.7 % (19-41); Mean Corp Hgb Conc 31.9 g/dL (32-36); Mean Corpuscular Hgb 30.2 pg (27.0-32.0); Mean Corpuscular Volume 94.7 fL (81-99); Mean Platelet Vol. 11.9 fl (6.2-12.0); Monocyte# 0.71 X10^3/uL; Monocyte% 12.3 % (0-10); NRBC Flagged by Analyzer 0 % (0-5); Neutrophil # 3.37 X10^3/uL (2.7-7.7); Neutrophil % 58.7 % (47-70); Platelet Count 276 K/mm3 (150-450); RBC Distribution Width CV 12.4 % (11.6-14.6); RBC Distribution Width SD 43.2 fl (35.1-43.9); Red Blood Count 4.37 M/mm3 (4.2-5.4); White Blood Count 5.8 K/mm3 (4.4-11.0)
--- NOTE | 2021-11-30 13:36 | NURSING ---
NO OLD EKGS
[2021-11-30 13:41] LABS: Bacteria 0 SEEN /hpf (None Seen); Color, Urine Yellow (Yellow); Glucose, Dipstick Normal (Normal); Ketone-Dipstick Negative (Negative); Leukocyte Esterase-Dipstick Negative /ul (Negative); Mucous, Urine 0 SEEN /hpf (<or=2+); Nitrite-Dipstick Negative (Negative); Occult Blood-Urine Negative /ul (Negative); Protein-Dipstick Negative (Negative); Red Blood Cells-Urine 0 SEEN /hpf (0-5); Specific Gravity, Urine 1.005 (1.002-1.030); Squamous Epithelial Cells - UA 0 SEEN /hpf (5-10); Urine Bilirubin Dipstick Negative (Negative); Urine Clarity Clear (Clear); Urine Urobilinogen Normal (Normal); White Blood Cells 0 SEEN /hpf (0-5)
[2021-11-30 13:45] LABS: Internal QC Validated? YES +Cl - CLEAR BKGD; Pregnancy, Serum, hCG Quali. NEGATIVE Negative
[2021-11-30 13:55] LABS: AST(SGOT) 18 U/L (15-37); Alanine Aminotransfer ALT/SGPT 23 U/L (13-56); Alkaline Phosphatase 76 U/L (45-117); Anion Gap 5 (5-15); BUN 12 mg/dL (7-18); BUN/Creat Ratio 16.7 RATIO (10-20); Calcium,Total 9.5 mg/dL (8.5-10.1); Chloride 106 mmol/L (98-107); Creatinine, Serum 0.72 mg/dL (0.55-1.02); EST Glomerular Filtration Rate 102 mL/min (>60); Est Glom Filt Rate - Afr Amer 123 mL/min (>60); Estimated Creatinine Clearance 99.56 ml/min; Globulin 4.1 g/dL (2.2-4.2); Glucose 81 mg/dL (74-106); Potassium 4.2 mmol/L (3.5-5.1); Protein, Total 8.1 g/dL (6.4-8.2); Sodium Level 139 mmol/L (136-145); Troponin-I HS < 3 pg/mL (3.0-54.0)
[2021-11-30 14:04] VITALS: BP 130/79; BP 132/78; BP 134/82; PULSE 55; PULSE 57; PULSE 58
== END 2021-11-30 15:11 | disposition home or self-care (01) ==
PROVIDERS: Emergency Provider Emergency Medicine; PCP Family Medicine; Visit Provider Emergency Medicine
DX: R55 Syncope and collapse (principal); R00.1 Bradycardia, unspecified
CPT/HCPCS: 70450; 80053; 81001; 84484; 84703; 85025; 93005; 96360; 99285; J7030

== ENCOUNTER → 2023-12-23 | Outpatient (CLI) | payer BC, SELFPAY ==
[2023-12-27 12:09] LABS: HPV APTIMA, High Risk Negative (Negative)
== END | disposition home or self-care (01) ==
PROVIDERS: PCP Family Medicine; Referring Provider Obstetrics & Gynecology; Visit Provider Obstetrics & Gynecology
DX: Z12.4 Encounter for screening for malignant neoplasm of cervix (principal)
CPT/HCPCS: 87624; 88175; G0145